=== PATIENT | male | born 1985 | race Caucasian/White ===

== ENCOUNTER 2017-10-23 16:20 | Emergency (ER) | payer SELFPAY ==
[~2017-10-23] VITALS: Ht 182.9 cm; Wt 136.1 kg
[~2017-10-23 16:20] MED LIST: AMOX-362 PO; AMOX500T10 PO; AZIT-1 PO; DIPH-741 PO; HYDR-319 PO; HYDR-385 PO; HYDR-4309 PO; IBUP800T37 PO; LOR5/325 PO; MOME17SP2 NS; OXYC-869 PO; PANT40TA65 PO; PENI-24 PO
[2017-10-23] MEDS ORDERED: PANT40TA65 PO (16:25)
--- NOTE | 2017-10-23 16:32 | ER Report ---
History and Physical Time Seen By MD: 16:32 Hx. of Stated Complaint: pt reports R ankle pain after tripping down the stairs HPI/ROS CHIEF COMPLAINT: Right ankle pain HISTORY OF PRESENT ILLNESS: 31-year-old male patient presents to emergency room with complaint of right ankle pain. Patient states that couple of hours ago he was going down the stairs when he fell. He states when he did that he twisted his ankle. States he is having pain on the medial aspect. He denies having any numbness or tingling. He states that the pain has been mild and he would not be here except for that his coarse 10. He denies any head injury, neck injury , dizziness, nausea, vomiting. REVIEW OF SYSTEMS: Respiratory: No cough, no dyspnea. Cardiovascular: No chest pain, no palpitations. Gastrointestinal: No vomiting, no abdominal pain. Musculoskeletal: As noted above Allergies: Coded Allergies: Egg Derived (Verified Allergy, Unknown, 10/23/17) Home Meds Reported Medications Pantoprazole Sodium (PANTOPRAZOLE SODIUM) 40 Mg Tablet.dr, 40 MG PO QDAY, TAB.SR 10/23/17 Past Medical/Surgical History Patient has a past medical history of reflux, alcohol use. Patient denies any surgical history. Hx Smoking: Yes Smoking Status: Former Smoker Hx Substance Use Disorder: No Hx Alcohol Use: Yes (occ) Constitutional Vital Sign - Last 24 Hours 10/23/17 10/23/17 16:25 17:30 Temp 97.9 Pulse 81 78 Resp 16 16 B/P (MAP) 144/82 138/75 (96) Pulse Ox 90 90 O2 Delivery Room Air Room Air Physical Exam General Appearance: The patient is alert, has no immediate need for airway protection and no current signs of toxicity. ENT: Tympanic membranes are pearly-bonilla, auditory canals are patent, mucous membranes are moist. Respiratory: Chest is non tender, lungs are clear to auscultation. Cardiac: regular rate and rhythm Gastrointestinal: Abdomen is soft and non tender, no masses, bowel sounds normal. Musculoskeletal: Neck: Neck is supple and non tender. Extremities have full range of motion and are non tender. Patient has some tenderness to the medial aspect of the right ankle, there is no obvious swelling , no bruising. Patient is able to wiggle toes without any difficulties. Skin: No rashes or lesions. DIFFERENTIAL DIAGNOSIS: After history and physical exam differential diagnosis was considered for ankle sprain, ankle strain, fracture. Medical Decision Making EKG/Imaging Imaging 3 views right ankle INDICATION: Fall. Ankle pain. COMPARISON: None Available FINDINGS: 3 views of the right ankle are obtained. No acute fracture or dislocation is seen. There is an intact ankle mortise. Rounded corticated ossification seen distal to the medial malleolus felt to be sequela of an old injury. There is soft tissue edema about the ankle which extends to the lower leg. There is a tiny heel spur. IMPRESSION: 1. No acute fracture or dislocation of the right ankle. 2. Soft tissue swelling about the ankle extending to the lower leg. Report Dictated By: Alfredo Neri at 10/23/2017 5:04 PM Report E-Signed By: Alfredo Neri at 10/23/2017 5:11 PM ED Course/Re-evaluation ED Course Patient was admitted to an exam room, history and physical were obtained. Differential diagnoses were considered. On examination patient has some tenderness to the medial aspect of the left ankle. X-rays were done. The results were negative, patient did have some soft tissue swelling but otherwise no fractures or dislocations. I discussed the findings with the patient. Due to the soft tissue swelling I did place the patient in an [place] wrap. He is to leave that on for the next few days. I encouraged him to continue with his normal activity. I prefer that he does not do any running or competitive sports. Patient verbalized understanding and agreement with plan. Patient does take Tylenol ibuprofen as needed for pain. Decision to Disposition Date: Oct 23, 2017 Decision to Disposition Time: 17:32 Depart Departure Latest Vital Signs Vital Signs Date Time Temp Pulse Resp B/P (MAP) Pulse Ox O2 Delivery O2 Flow Rate FiO2 10/23/17 17:30 78 16 138/75 (96) 90 Room Air 10/23/17 16:25 97.9 Impression: Primary Impression: Ankle sprain Condition: Improved Disposition: HOME OR SELF-CARE Patient Instructions: Ankle Sprain (ED) Additional Instructions: Limit activity by pain. Ice the ankle 2-3 times a day for 10-15 minutes. Get plenty of rest. Take Tylenol or Ibuprofen as needed for pain. Continue with current activity. Return to the ER if condition worsens. Problem Qualifiers Primary Impression: Ankle sprain Encounter type: initial encounter Involved ligament of ankle: unspecified ligament Laterality: right Qualified Codes: S93.401A - Sprain of unspecified ligament of right ankle, initial encounter LASHON SUNG Oct 23, 2017 16:32
[2017-10-23] MEDS ORDERED: KETOROLAC TROM 10MG TAB PO ONE (16:45)
--- NOTE | 2017-10-23 17:16 | RADIOLOGY IMAGING REPORT ---
FACILITY: [facility] PATIENT NAME: Checo Rosas : 1985 MR: [id number] V: [id number] EXAM DATE: ORDERING PHYSICIAN: LASHON SUNG TECHNOLOGIST: Location: [facility] [place] Patient: Checo Rosas : 1985 Visit/Account:[id number] Date of Sevice: 10/23/2017 3 views right ankle INDICATION: Fall. Ankle pain. COMPARISON: None Available FINDINGS: 3 views of the right ankle are obtained. No acute fracture or dislocation is seen. There is an intact ankle mortise. Rounded corticated ossification seen distal to the medial malleolus felt to be sequel a of an old injury. There is soft tissue edema about the ankle which extends to the lower leg. There is a tiny heel spur. IMPRESSION: 1. No acute fracture or dislocation of the right ankle. 2. Soft tissue swelling about the ankle extending to the lower leg. Report Dictated By: Alfredo Neri at 10/23/2017 5:04 PM Report E-Signed By: Alfredo Neri at 10/23/2017 5:11 PM WSN:[id number]
[2017-10-23 17:30] VITALS: BP 138/75
== END 2017-10-23 17:34 | disposition home or self-care (01) ==
LOC: ER 16:26
DX: S93.401A Sprain of unspecified ligament of right ankle, initial encounter (principal)
CPT/HCPCS: 99283

== ENCOUNTER 2017-11-17 00:07 | Emergency (ER) | payer SELFPAY ==
[~2017-11-17] VITALS: Ht 182.9 cm; Wt 136.1 kg
--- NOTE | 2017-11-17 00:08 | ER Report ---
History and Physical Time Seen By MD: 00:08 HPI/ROS CHIEF COMPLAINT: Right elbow injury HISTORY OF PRESENT ILLNESS: 31-year-old male reports he slipped on the ice and fell directly on his right elbow. There is an abrasion and bleeding. He notes decreased range of motion in his elbow and pain. He describes 7/10 pain. He notes numbness in his fingers and hand. He states she's having trouble moving his fingers and hand because they feel numb. Patient denies any other injuries. He thinks his last tetanus shots up-to-date within last 10 years. Allergies: Coded Allergies: Egg Derived (Verified Allergy, Unknown, 11/17/17) Home Meds Reported Medications Pantoprazole Sodium (PANTOPRAZOLE SODIUM) 40 Mg Tablet.dr, 40 MG PO QDAY, TAB.SR 10/23/17 Reviewed Nurses Notes: Yes Old Medical Records Reviewed: Yes Hx Smoking: Yes Smoking Status: Former Smoker Hx Substance Use Disorder: No Hx Alcohol Use: Yes (occ) Constitutional Vital Sign - Last 24 Hours 11/17/17 00:10 Temp 97.8 Pulse 70 Resp 20 B/P (MAP) 135/90 Pulse Ox 91 O2 Delivery Room Air Physical Exam General appearance: Alert no distress. Respiratory: Chest is non tender, lungs are clear to auscultation. Cardiac: Regular rate and rhythm Extremities: Examination of the right upper extremity reveals no tenderness in the shoulder. There is decreased range of motion at the elbow. There is an abrasion over the olecranon process. The forearm is nontender. The wrist is nontender. Patient given strict a week wrap 2nd to pain. All digits appear neurovascularly intact. DIFFERENTIAL DIAGNOSIS: After history and physical exam differential diagnosis was considered for sprain, strain, fracture, dislocation, contusion, nerve contusion Medical Decision Making EKG/Imaging Imaging X-ray: Right elbow, 3 views was obtained. I viewed the images myself on the PACS system. My interpretation of the images is: No fracture no dislocation or malalignment. The radiologist interpretation had no clinically significant variation from this interpretation. ED Course/Re-evaluation ED Course Patient was admitted to an examination room. H&P was done. The dental diagnoses was considered. On clinical examination, patient has an abrasion and soft tissue swelling to his elbow. There is decreased range of motion secondary to injury. Distal neurovascular functions intact. Diagnostic x-rays are negative. Patient's wound is cleaned up. He's placed in a sling to rest his arm. He is advised ibuprofen 600 mg 3 times daily. Patient advised to follow-up with primary care if unimproved in 3-5 days. Decision to Disposition Date: Nov 17, 2017 Decision to Disposition Time: 00:37 Depart Departure Latest Vital Signs Vital Signs Date Time Temp Pulse Resp B/P (MAP) Pulse Ox O2 Delivery O2 Flow Rate FiO2 11/17/17 00:10 97.8 70 20 135/90 91 Room Air Impression: Primary Impression: Contusion of right elbow Additional Impression: Abrasion of right elbow Condition: Improved Disposition: HOME OR SELF-CARE Referrals: TAWANNA POSADAS MD Patient Instructions: Acute Wound Care (ED), Contusion in Adults (ED) Additional Instructions: Take ibuprofen 200 mg 3 tablets 3 times a day with food Apply ice bags to your elbow Follow-up with your primary care if unimproved in 3-5 days. Problem Qualifiers Primary Impression: Contusion of right elbow Encounter type: initial encounter Qualified Codes: S50.01XA - Contusion of right elbow, initial encounter Additional Impression: Abrasion of right elbow Encounter type: initial encounter Qualified Codes: S50.311A - Abrasion of right elbow, initial encounter ANT GENAO DO Nov 17, 2017 00:08
[2017-11-17 00:10] VITALS: BP 135/90
[2017-11-17] MEDS ORDERED: IBUPROFEN 600 MG TAB PO ONE (00:40)
--- NOTE | 2017-11-17 00:57 | RADIOLOGY IMAGING REPORT ---
FACILITY: [facility] - [place] PATIENT NAME: Checo Rosas : 1985 MR: [id number] V: [id number] EXAM DATE: ORDERING PHYSICIAN: ANT GENAO TECHNOLOGIST: Location: [facility] - [place] Patient: Checo Rosas : 1985 Visit/Account:[id number] Date of Sevice: 11/17/2017 INDICATION: Fall, right elbow injury. EXAM DATE: 11/17/2017 12:17 AM COMPARISON: None. FINDINGS: 3 views right elbow. Mineralization is normal. No acute alignment abnormality or fracture. Soft tissu es are unremarkable. IMPRESSION: No acute osseous abnormality of the right right elbow. Report Dictated By: Jose A Cuevas MD at 11/17/2017 12:52 AM Report E-Signed By: Jose A Cuevas MD at 11/17/2017 12:53 AM WSN:[id number]
== END 2017-11-17 01:04 | disposition home or self-care (01) ==
LOC: ER 00:33
DX: S50.01XA Contusion of right elbow, initial encounter (principal); S50.311A Abrasion of right elbow, initial encounter; W00.0XXA Fall on same level due to ice and snow, initial encounter
CPT/HCPCS: 73080; 99282; A4565

== ENCOUNTER 2018-05-27 20:44 | Emergency (ER) | payer SELFPAY ==
[2018-05-27 20:47] VITALS: BP 163/108
[2018-05-27] MEDS ORDERED: TRAM-420 PO (21:02)
[2018-05-27] MEDS ORDERED: METH4TAB66 PO (21:02)
[2018-05-27] MEDS ORDERED: CYCL10TA29 PO (21:02)
--- NOTE | 2018-05-27 21:03 | ER Report ---
History and Physical Time Seen By MD: 20:54 Hx. of Stated Complaint: PT INJURED BACK 2 MONTHS AGO, NOW HAVING NUMBNESS IN BILAT LOWER EXTREMITIES HPI/ROS CHIEF COMPLAINT: Back pain HISTORY OF PRESENT ILLNESS: 32-year-old male presents ambulatory to the ER with 2 months of back pain in his lower back radiating to his left lower extremity. Patient was carrying a couch when he had a twisting motion. He's had persistent pain down his left lower extremity. He describes it 03/29, aggravated by bending and movement. REVIEW OF SYSTEMS: Respiratory: No cough, no dyspnea. Cardiovascular: No chest pain, no palpitations. Gastrointestinal: No vomiting, no abdominal pain. Musculoskeletal: As above Allergies: Coded Allergies: Egg Derived (Verified Allergy, Unknown, 05/27/18) Home Meds Active Scripts Cyclobenzaprine Hcl (CYCLOBENZAPRINE HCL) 10 Mg Tablet, 10 MG PO TID PRN for muscle spasm relief, #12 TAB Prov:ANT GENAO DO 05/27/18 Tramadol Hcl (TRAMADOL HCL) 50 Mg Tablet, 1 TAB PO Q4-6H PRN for PAIN, #15 MG TAKE ONE TO TWO TABLETS BY MOUTH EVERY FOUR TO SIX HOURS NEEDED Prov:ANT GENAO DO 05/27/18 Methylprednisolone (METHYLPREDNISOLONE) 4 Mg Tab.ds.pk, 4 MG PO DIRECTED for back inflammation, #1 TAB Prov:ANT GENAO DO 05/27/18 Reported Medications Pantoprazole Sodium (PANTOPRAZOLE SODIUM) 40 Mg Tablet.dr, 40 MG PO QDAY, TAB.SR 10/23/17 Hx Smoking: Yes Smoking Status: Former Smoker Hx Substance Use Disorder: No Hx Alcohol Use: Yes (occ) Constitutional Vital Sign - Last 24 Hours 05/27/18 20:47 Temp 98.5 Pulse 78 Resp 16 B/P (MAP) 163/108 Pulse Ox 93 O2 Delivery Room Air Physical Exam General Appearance: The patient is alert, has no immediate need for airway protection and no current signs of toxicity. Eyes: Pupils equal and round no injection. Respiratory: Chest is non tender, lungs are clear to auscultation. Cardiac: regular rate and rhythm Gastrointestinal: Abdomen is soft and non tender, no masses, bowel sounds normal. Musculoskeletal: Neck: Neck is supple and non tender. Back: No CVA tenderness, moderate tenderness in the midline, Extremities have full range of motion and are non tender. Positive straight leg raise on the right at 45 Skin: No rashes or lesions. DIFFERENTIAL DIAGNOSIS: After history and physical exam differential diagnosis was considered for back pain including but not limited to muscular pain, herniated disc, spine fracture, intra-abdominal causes and urinary tract infection. Medical Decision Making ED Course/Re-evaluation ED Course Patient was minute to an examination room. H&P was done. The differential diagnoses was considered. On conical examination. Patient has findings suspicious for a herniated disc of his left leg. Patient's had symptoms for 2 months. Patient will likely need an MRI for diagnosis. Patient has no health insurance and can't afford it. We'll treat him symptomatically with prednisone, tramadol for pain and Flexeril for muscle relaxation. Patient advised to follow-up with Dr. Gallardo for consideration of spinal surgery. Decision to Disposition Date: May 27, 2018 Decision to Disposition Time: 21:00 Depart Departure Latest Vital Signs Vital Signs Date Time Temp Pulse Resp B/P (MAP) Pulse Ox O2 Delivery O2 Flow Rate FiO2 05/27/18 20:47 98.5 78 16 163/108 93 Room Air Impression: Primary Impression: Back pain Additional Impression: Lumbar herniated disc Condition: Improved Disposition: HOME OR SELF-CARE Referrals: SHUBHAM GALLARDO MD New Scripts Cyclobenzaprine Hcl (CYCLOBENZAPRINE HCL) 10 Mg Tablet 10 MG PO TID PRN for muscle spasm relief, #12 TAB Prov: ANT GENAO DO 05/27/18 Tramadol Hcl (TRAMADOL HCL) 50 Mg Tablet 1 TAB PO Q4-6H PRN for PAIN, #15 MG TAKE ONE TO TWO TABLETS BY MOUTH EVERY FOUR TO SIX HOURS NEEDED Prov: ANT GENAO DO 05/27/18 Methylprednisolone (METHYLPREDNISOLONE) 4 Mg Tab.ds.pk 4 MG PO DIRECTED for back inflammation, #1 TAB Prov: ANT GENAO DO 05/27/18 Patient Instructions: Lumbar Disc Herniation (ED) Additional Instructions: Take ibuprofen 200 mg 3 tablets 3 times a day with food Apply heating pad to your back area Follow-up with spinal surgeon, Dr. Shubham Gallardo at [facility] [phone], address [address] Problem Qualifiers Primary Impression: Back pain Back pain location: low back pain Chronicity: acute Back pain laterality: left Sciatica presence: with sciatica Sciatica laterality: sciatica of left side Qualified Codes: M54.42 - Lumbago with sciatica, left side ANT GENAO DO May 27, 2018 21:03
[2018-05-27] MEDS ORDERED: predniSONE 20 MG TAB PO ONE (21:05)
[2018-05-27] MEDS ORDERED: METHOCARBAMOL 500 MG TAB PO ONE (21:05)
[2018-05-27] MEDS ORDERED: traMADol 50 MG TAB TH 2 TAB/BOTTLE PO ONE (21:05)
== END 2018-05-27 21:23 | disposition home or self-care (01) ==
LOC: ER 20:48
DX: M54.42 Lumbago with sciatica, left side (principal); M51.26 Other intervertebral disc displacement, lumbar region
CPT/HCPCS: 99283; C9399; J7512

== ENCOUNTER 2018-07-25 12:26 | Emergency (ER) | payer BC ==
[~2018-07-25 12:26] MED LIST changes: +CYCL10TA29 PO; -HYDR-4309 PO; +HYDR-653 PO; +METH4TAB66 PO; +TRAM-420 PO
--- NOTE | 2018-07-25 12:37 | ER Report ---
History and Physical Time Seen By MD: 12:37 HPI/ROS CHIEF COMPLAINT: Back pain HISTORY OF PRESENT ILLNESS: 32-year-old male patient presents to emergency room with complaint of back pain. Patient states that he has been having intermittent back pain for the past month. Patient states pain today was fairly significant. He states that he was unable to get out of bed by himself. States his had to help rollover impression mild. Patient states that he's not had any loss of bowel or bladder control. He denies having any saddle paresthesia. Patient states that he was seen approximately one month ago, was placed on pain medication as well as muscle relaxer. States muscle relaxer seemed to help, however he felt like the pain medication made him mean. Patient denies any fevers, chills, nausea, vomiting or diarrhea. REVIEW OF SYSTEMS: Respiratory: No cough, no dyspnea. Cardiovascular: No chest pain, no palpitations. Gastrointestinal: No vomiting, no abdominal pain. Musculoskeletal: As noted above Allergies: Coded Allergies: Egg Derived (Verified Allergy, Unknown, 07/25/18) Home Meds Active Scripts Prednisone (PREDNISONE) 20 Mg Tablet, 40 MG PO DAILY, #10 TAB Prov:LASHON SUNG [facility] 07/25/18 Cyclobenzaprine Hcl (CYCLOBENZAPRINE HCL) 10 Mg Tablet, 10 MG PO TID, #15 TAB Prov:LASHON SUNG [facility] 07/25/18 Hydrocodone Bit/Acetaminophen (HYDROCODON-ACETAMINOPHEN 5-325) 1 Each Tablet, 1 EACH PO Q4-6H PRN for PAIN, #8 TAB Prov:LASHON SUNG [facility] 07/25/18 Reported Medications Pantoprazole Sodium (PANTOPRAZOLE SODIUM) 40 Mg Tablet.dr, 40 MG PO QDAY, TAB.SR 10/23/17 Discontinued Scripts Cyclobenzaprine Hcl (CYCLOBENZAPRINE HCL) 10 Mg Tablet, 10 MG PO TID PRN for muscle spasm relief, #12 TAB Prov:ANT GENAO DO 05/27/18 Tramadol Hcl (TRAMADOL HCL) 50 Mg Tablet, 1 TAB PO Q4-6H PRN for PAIN, #15 MG TAKE ONE TO TWO TABLETS BY MOUTH EVERY FOUR TO SIX HOURS NEEDED Prov:ANT GENAO DO 05/27/18 Methylprednisolone (METHYLPREDNISOLONE) 4 Mg Tab.ds.pk, 4 MG PO DIRECTED for back inflammation, #1 TAB Prov:ANT GENAO DO 05/27/18 Past Medical/Surgical History Patient has a past medical history of reflux, alcohol use. Patient has no pertinent surgical history. Reviewed Nurses Notes: Yes Hx Smoking: Yes Smoking Status: Former Smoker Hx Substance Use Disorder: No Hx Alcohol Use: Yes (occ) Constitutional Vital Sign - Last 24 Hours 07/25/18 12:37 Temp 98.3 Pulse 70 Resp 16 B/P (MAP) 136/104 Pulse Ox 93 O2 Delivery Room Air Physical Exam General Appearance: The patient is alert, has no immediate need for airway protection and no current signs of toxicity. ENT: Tympanic membranes are pearly-bonilla, auditory canals are patent, mucous membranes are moist. Respiratory: Chest is non tender, lungs are clear to auscultation. Cardiac: regular rate and rhythm Gastrointestinal: Abdomen is soft and non tender, no masses, bowel sounds normal. Musculoskeletal: Neck: Neck is supple and non tender. Back: Patient has tenderness in the low back, especially on the right side. No bruising noted. Extremities have full range of motion and are non tender. Skin: No rashes or lesions. DIFFERENTIAL DIAGNOSIS: After history and physical exam differential diagnosis was considered for back pain including but not limited to muscular pain, herniated disc, spine fracture, intra-abdominal causes and urinary tract infection. Medical Decision Making EKG/Imaging Imaging Examination: LUMBAR SPINE 4 VIEWS Comparison: CT abdomen and pelvis 03/15/2017 History: back pain Findings: 5 lumbar type vertebral bodies. Vertebral body alignment is within normal limits; thoracolumbar, facet, and lumbosacral alignment is maintained. Mild anterior compression at L1 is unchanged since 03/15/2017. No new vertebral body height loss. Mild endplate degenerative change of thoracolumbar junction. Disc spaces are otherwise fairly well-preserved. No pars defect is identified. Sacroiliac joint alignment is within normal limits. Visualized soft tissues are unremarkable. IMPRESSION: 1. No lumbar acute vertebral body height loss or malalignment. Chronic anterior compression at L1. 2. Mild degenerative change at the thoracolumbar junction. Report Dictated By: Anthony Vega MD at 07/25/2018 2:22 PM Report E-Signed By: Anthony Vega MD at 07/25/2018 2:25 PM ED Course/Re-evaluation ED Course Patient was admitted exam room, history and physical were obtained. Differential diagnoses were considered. On examination lungs are clear, heart is regular, abdomen is soft and nontender. Patient did have some tenderness in the L4-L5 region. X-ray of the lumbar spine was done. That was negative for any acute findings. There is some degeneration of the L5 region as well as what appear to be chronic compression at L1. I discussed findings with patient. We will go ahead and give him a limited supply of pain medication, a muscle relaxer as well as a steroid. I would like him take steroid as directed. The others I would like him to take as needed. Patient is to follow-up with his appointment that he has this week. I expect they will make a referral to Dr. Gallardo at [facility]. He is to limit his activity by pain. I like him to limit his heavy lifting. Discusses the patient who verbalized understanding and agreement. Decision to Disposition Date: Jul 25, 2018 Decision to Disposition Time: 14:38 Depart Departure Latest Vital Signs Vital Signs Date Time Temp Pulse Resp B/P (MAP) Pulse Ox O2 Delivery O2 Flow Rate FiO2 07/25/18 12:37 98.3 70 16 136/104 93 Room Air Impression: Primary Impression: Back pain Condition: Improved Disposition: HOME OR SELF-CARE New Scripts Prednisone (PREDNISONE) 20 Mg Tablet 40 MG PO DAILY, #10 TAB Prov: LASHON SUNG 07/25/18 Cyclobenzaprine Hcl (CYCLOBENZAPRINE HCL) 10 Mg Tablet 10 MG PO TID, #15 TAB Prov: LASHON SUNG 07/25/18 Hydrocodone Bit/Acetaminophen (HYDROCODON-ACETAMINOPHEN 5-325) 1 Each Tablet 1 EACH PO Q4-6H PRN for PAIN, #8 TAB Prov: LASHON SUNG 07/25/18 Patient Instructions: Acute Low Back Pain (ED) Additional Instructions: Limit activity by pain. Take the medication as prescribed. Follow up in Wednesday with your current appointment. Return to the ER if condition worsens. Limit heavy lifting during this time. Problem Qualifiers Primary Impression: Back pain Back pain location: low back pain Chronicity: acute Back pain laterality: right Sciatica presence: with sciatica Sciatica laterality: sciatica of right side Qualified Codes: M54.41 - Lumbago with sciatica, right side LASHON SUNG Jul 25, 2018 12:37
--- NOTE | 2018-07-25 14:28 | RADIOLOGY IMAGING REPORT ---
FACILITY: [facility] PATIENT NAME: Checo Rosas : 1985 MR: [id number] V: [id number] EXAM DATE: ORDERING PHYSICIAN: LASHON SUNG TECHNOLOGIST: Location: [facility] Patient: Checo Rosas : 1985 Visit/Account:[id number] Date of Sevice: 07/25/2018 Examination: LUMBAR SPINE 4 VIEWS Comparison: CT abdomen and pelvis 03/15/2017 History: back pain Findings: 5 lumbar type vertebral bodies. Vertebral body alignment is within normal limits; thoracolu mbar, facet, and lumbosacral alignment is maintained. Mild anterior compression at L1 is unchanged si nce 03/15/2017. No new vertebral body height loss. Mild endplate degenerative change of thoracolumbar junction. Disc spaces are otherwise fairly well-preserved. No pars defect is identified. Sacroiliac j oint alignment is within normal limits. Visualized soft tissues are unremarkable. IMPRESSION: 1. No lumbar acute vertebral body height loss or malalignment. Chronic anterior compression at L1. 2. Mild degenerative change at the thoracolumbar junction. Report Dictated By: Anthony Vega MD at 07/25/2018 2:22 PM Report E-Signed By: Anthony Vega MD at 07/25/2018 2:25 PM WSN:[id number]
[2018-07-25] MEDS ORDERED: CYCL10TA29 PO (14:35)
[2018-07-25] MEDS ORDERED: HYDR-385 PO (14:35)
[2018-07-25] MEDS ORDERED: PRED20TA6 PO (14:35)
[2018-07-25 14:44] VITALS: BP 141/91
== END 2018-07-25 14:47 | disposition home or self-care (01) ==
LOC: ER 13:09
DX: M54.41 Lumbago with sciatica, right side (principal)
CPT/HCPCS: 72120; 99283

== ENCOUNTER 2018-08-03 13:03 | Emergency (ER) | payer BC ==
[~2018-08-03 13:03] MED LIST changes: +PRED20TA6 PO
[2018-08-03 13:09] VITALS: BP 150/95
--- NOTE | 2018-08-03 13:19 | ER Report ---
History and Physical Time Seen By MD: 13:19 Hx. of Stated Complaint: patient reports a fall on ice 2 days ago. his back is hurting in the same spot as on the previous er visit HPI/ROS CHIEF COMPLAINT: Back pain HISTORY OF PRESENT ILLNESS: 32-year-old male patient presents to emergency room with complaint of back pain. Patient states that he has had back pain now for the past 2 months. He states that he was seen in the emergency room approximately 9 days ago. At that time he was directed to follow-up with primary care provider. He states he did and was referred to physical therapy. He states he has a appointment on Wednesday for that. Patient states that 2 nights ago he slipped and fell on the ice. He states that aggravated the back pain. He states that the pain is persistent. He states he is not having any problems. He states he is not having any numbness tingling was riding down the legs. He denies having any saddle paresthesia. He denies having any loss of bowel or bladder control. Patient requests that he get a note for light duty at work. He states that his instructed him to come to the emergency room as he was directed by [facility] when he called them Wednesday after his fall. Allergies: Coded Allergies: Egg Derived (Verified Allergy, Unknown, 07/25/18) Home Meds Active Scripts Prednisone (PREDNISONE) 20 Mg Tablet, 40 MG PO DAILY, #10 TAB Prov:LASHON SUNG [facility] 07/25/18 Cyclobenzaprine Hcl (CYCLOBENZAPRINE HCL) 10 Mg Tablet, 10 MG PO TID, #15 TAB Prov:LASHON SUNG [facility] 07/25/18 Hydrocodone Bit/Acetaminophen (HYDROCODON-ACETAMINOPHEN 5-325) 1 Each Tablet, 1 EACH PO Q4-6H PRN for PAIN, #8 TAB Prov:LASHON SUNG [facility] 07/25/18 Reported Medications Pantoprazole Sodium (PANTOPRAZOLE SODIUM) 40 Mg Tablet.dr, 40 MG PO QDAY, TAB.SR 10/23/17 Past Medical/Surgical History Patient has a past medical history of reflux, alcohol use. Patient denies any surgical history. Reviewed Nurses Notes: Yes Hx Smoking: Yes Smoking Status: Former Smoker Hx Substance Use Disorder: No Hx Alcohol Use: Yes (occ) Constitutional Vital Sign - Last 24 Hours 08/03/18 13:09 Temp 98.5 Pulse 72 Resp 24 B/P (MAP) 150/95 Pulse Ox 91 O2 Delivery Room Air Physical Exam General Appearance: The patient is alert, has no immediate need for airway protection and no current signs of toxicity. Respiratory: Chest is non tender, lungs are clear to auscultation. Cardiac: regular rate and rhythm Gastrointestinal: Abdomen is soft and non tender, no masses, bowel sounds normal. Musculoskeletal: Neck: Neck is supple and non tender. Back: Patient does have some tenderness in the L3-L4 region with tenderness to the paraspinal muscles. Extremities have full range of motion and are non tender. Skin: No rashes or lesions. DIFFERENTIAL DIAGNOSIS: After history and physical exam differential diagnosis was considered for acute on chronic back pain. Medical Decision Making ED Course/Re-evaluation ED Course Patient was admitted to exam room, history and physical were obtained. Differential diagnoses were considered. On examination lungs are clear, heart is regular, abdomen is soft and nontender. Patient did have some tenderness in the L3-L4 region of the back. As well as some paraspinal muscle tenderness on the right side. With the injury being a flareup of his chronic pain we discussed an x-ray of decided against it. Patient requested note for light duty at work. Patient was given a note to limit his weight lifting to less than 30 pounds, he is also to limit his time bending or squatting as much as possible. He is to follow-up with physical therapy as directed. I would like him to get cleared for full duty through their own joint and was given information for Dr. Phipps. Patient verbalized understanding and agreement with plan. Decision to Disposition Date: Aug 03, 2018 Decision to Disposition Time: 13:25 Depart Departure Latest Vital Signs Vital Signs Date Time Temp Pulse Resp B/P (MAP) Pulse Ox O2 Delivery O2 Flow Rate FiO2 08/03/18 13:09 98.5 72 24 150/95 91 Room Air Impression: Primary Impression: Back pain Condition: Improved Disposition: HOME OR SELF-CARE Referrals: VOLODYMYR PHIPPS MD Patient Instructions: Back Pain (ED) Additional Instructions: Limit activity by pain. Alternate ice and heat with your back. Get plenty of rest. Take the medication as prescribed. Follow up with Physical Therapy as directed. Return to the ER if condition worsens. Limit activity at work to prevent heavy lifting <30 pounds. Limit bending and squatting to a minimum. Patient will need to be cleared by orthopedics. Problem Qualifiers Primary Impression: Back pain Back pain location: low back pain Chronicity: chronic Back pain laterality: right Sciatica presence: without sciatica Qualified Codes: M54.5 - Low back pain; G89.29 - Other chronic pain LASHON SUNG Aug 03, 2018 13:19
== END 2018-08-03 13:37 | disposition home or self-care (01) ==
LOC: ER 13:24
DX: M54.5 Low back pain (principal); G89.29 Other chronic pain
CPT/HCPCS: 99281

== ENCOUNTER 2018-08-05 21:15 | Emergency (ER) | payer BC ==
[2018-08-05 21:20] VITALS: BP 167/91
--- NOTE | 2018-08-05 21:20 | ER Report ---
History and Physical Time Seen By MD: 21:20 HPI/ROS CHIEF COMPLAINT: Toothache HISTORY OF PRESENT ILLNESS: 32-year-old male presents ambulatory to the ER complaining of dental pain. Patient notes no difficulty swallowing or breathing. He's had no fever or chills. He notes a dull pain that started approximately 3 days ago. REVIEW OF SYSTEMS: Respiratory: No cough, no dyspnea. Cardiovascular: No chest pain, no palpitations. Gastrointestinal: No vomiting, no abdominal pain. Musculoskeletal: No back pain. Allergies: Coded Allergies: Egg Derived (Verified Allergy, Unknown, 07/25/18) Home Meds Active Scripts Amoxicillin/Pot Clav 875-125 Mg Tab (AUGMENTIN 875-125 TABLET) 1 Each Tablet, 1 TAB PO Q12H for 7 Days, #14 TAB Prov:ROXY GUZMAN MD 08/06/18 Amoxicillin 500 Mg Tab (AMOXICILLIN 500 MG TAB) 500 Mg Tablet, 1 TAB PO TID for infection, #30 TAB Prov:ANT GENAO DO 08/05/18 Hydrocodone Bit/Acetaminophen (HYDROCODON-ACETAMINOPHEN 5-325) 1 Each Tablet, 1 EACH PO Q4-6H PRN for PAIN, #8 TAB Prov:LASHON SUNG [facility] 07/25/18 Reported Medications Pantoprazole Sodium (PANTOPRAZOLE SODIUM) 40 Mg Tablet.dr, 40 MG PO QDAY, TAB.SR 10/23/17 Discontinued Scripts Prednisone (PREDNISONE) 20 Mg Tablet, 40 MG PO DAILY, #10 TAB Prov:LASHON SUNG [facility] 07/25/18 Cyclobenzaprine Hcl (CYCLOBENZAPRINE HCL) 10 Mg Tablet, 10 MG PO TID, #15 TAB Prov:LASHON SUNG [facility] 07/25/18 Past Medical/Surgical History Patient has a past medical history of reflux, alcohol use. Patient denies any surgical history. Reviewed Nurses Notes: Yes Old Medical Records Reviewed: Yes Hx Smoking: Yes Smoking Status: Former Smoker Hx Substance Use Disorder: No Hx Alcohol Use: Yes (occ) Constitutional Vital Sign - Last 24 Hours 08/05/18 21:20 Temp 97.7 Pulse 83 Resp 17 B/P (MAP) 167/91 Pulse Ox 94 O2 Delivery Room Air Physical Exam Vital signs stable, afebrile, pulse ox normal, General Appearance: The patient is alert, has no immediate need for airway protection and no current signs of toxicity. Mild distress HEENT: Pupils equal and round no injection. TMs normal, TMJs nontender, oropharynx shows tooth at #7 position with a large carry. There is some surrounding gum inflammation, erythema and tenderness with palpation of a tongue blade. There is no soft tissue swelling of the maxillary area. There is no lymphadenopathy or induration of the lower neck tissues. Palpation of the anterior cervical chain region Respiratory: Chest is non tender, lungs are clear to auscultation. Cardiac: regular rate and rhythm, no murmur Musculoskeletal: Neck: Neck is supple and non tender. Extremities have full range of motion and are non tender. Skin: No rashes or lesions. DIFFERENTIAL DIAGNOSIS: After history and physical exam differential diagnosis was considered for dental pain, tooth abscess, sinusitis, dental fistula Medical Decision Making ED Course/Re-evaluation ED Course Patient was minute to an examination room. H&P was done. The differential diagnoses was considered. On clinical examination. Patient has a dental carry with surrounding gum inflammation suggesting a tooth abscess. We prescribed amoxicillin 500 mg 3 times a day. He is advised alternating ibuprofen and Tylenol for affective pain relief. He is advised by heating pad to his facial area. Patient's advised follow up with the dentist as soon as possible. Decision to Disposition Date: Aug 05, 2018 Decision to Disposition Time: 21:30 Depart Departure Latest Vital Signs Vital Signs Date Time Temp Pulse Resp B/P (MAP) Pulse Ox O2 Delivery O2 Flow Rate FiO2 08/05/18 21:20 97.7 83 17 167/91 94 Room Air Impression: Primary Impression: Dental abscess Condition: Improved Disposition: HOME OR SELF-CARE New Scripts Amoxicillin 500 Mg Tab (AMOXICILLIN 500 MG TAB) 500 Mg Tablet 1 TAB PO TID for infection, #30 TAB Prov: ANT GENAO DO 08/05/18 Patient Instructions: Dental Abscess (ED) Additional Instructions: Follow-up with your dentist as soon as possible ANT GENAO DO Aug 05, 2018 21:20
[2018-08-05] MEDS ORDERED: AMOXICILLIN 500 MG CAP PO ONE (21:30)
[2018-08-05] MEDS ORDERED: AMOX500T10 PO (21:32)
[2018-08-06] MEDS ORDERED: AMOX-559 PO (10:15)
== END 2018-08-05 21:45 | disposition home or self-care (01) ==
LOC: ER 21:24
DX: K04.7 Periapical abscess without sinus (principal)
CPT/HCPCS: 99283

== ENCOUNTER 2018-08-06 09:25 | Emergency (ER) | payer BC ==
[2018-08-06 09:32] VITALS: BP 159/107
[2018-08-06] MEDS ORDERED: AMOX/CLAV 875 MG TAB PO ONE (10:10)
[2018-08-06] MEDS ORDERED: LIDOCAINE 4% 15 GM TUBE TP ONE (10:10)
[2018-08-06] MEDS ORDERED: AMOX-559 PO (10:15)
--- NOTE | 2018-08-06 10:16 | ER Report ---
History and Physical Time Seen By MD: 10:00 Hx. of Stated Complaint: PATIENT REPORTS THAT HE HAS A DENTAL ABSCESS THAT HE WAS SEEN FOR OVERNIGHT IN THE ER. HE WAS GIVEN ANTIBIOTICS FOR THIS IN THE ER HPI/ROS CHIEF COMPLAINT: dental pain HISTORY OF PRESENT ILLNESS: pt c/o worsening pain r upper incisor since last night, when he was seen. Pain x 2 d, now 8/10. Assoc with local swelling, nausea, chills. Has taken tylenol this am. Has not picked up his amox rx. No fevers, cp, sob, ap, vomiting. Has had similar before. Has dental f/u. REVIEW OF SYSTEMS: Respiratory: No cough, no dyspnea. Cardiovascular: No chest pain, no palpitations. Gastrointestinal: No vomiting, no abdominal pain. Musculoskeletal: No back pain. Remainder of the 14 system rev: Yes Allergies: Coded Allergies: Egg Derived (Verified Allergy, Unknown, 07/25/18) Home Meds Active Scripts Amoxicillin 500 Mg Tab (AMOXICILLIN 500 MG TAB) 500 Mg Tablet, 1 TAB PO TID for infection, #30 TAB Prov:ANT GENAO DO 08/05/18 Hydrocodone Bit/Acetaminophen (HYDROCODON-ACETAMINOPHEN 5-325) 1 Each Tablet, 1 EACH PO Q4-6H PRN for PAIN, #8 TAB Prov:LASHON SUNG [facility] 07/25/18 Reported Medications Pantoprazole Sodium (PANTOPRAZOLE SODIUM) 40 Mg Tablet.dr, 40 MG PO QDAY, TAB.SR 10/23/17 Discontinued Scripts Prednisone (PREDNISONE) 20 Mg Tablet, 40 MG PO DAILY, #10 TAB Prov:LASHON SUNG [facility] 07/25/18 Cyclobenzaprine Hcl (CYCLOBENZAPRINE HCL) 10 Mg Tablet, 10 MG PO TID, #15 TAB Prov:LASHON SUNG [facility] 07/25/18 Hx Smoking: Yes Smoking Status: Former Smoker Hx Substance Use Disorder: No Hx Alcohol Use: Yes (occ) Constitutional Vital Sign - Last 24 Hours 08/06/18 09:32 Pulse 97 Resp 24 B/P (MAP) 159/107 Pulse Ox 95 O2 Delivery Room Air Physical Exam General Appearance: The patient is alert, has no immediate need for airway protection and no current signs of toxicity. Eyes: Pupils equal and round no injection. Respiratory: Chest is non tender, lungs are clear to auscultation. Cardiac: regular rate and rhythm ENT - R #7 dental burt with surrounding erythema, mild edema, ttp. No fluctuance with thorough palpation around site. No other oral or soft tissue swelling. No facial cellulitis. Musculoskeletal: Neck: no cervical lad Skin: No rashes or lesions. DIFFERENTIAL DIAGNOSIS: After history and physical exam differential diagnosis was considered for dental yun, abscess, cellulitis Medical Decision Making ED Course/Re-evaluation ED Course Pt c/o increased pain/swelling and concern of amox coverage; he is aware that he has not had chance for amox to work. No clear abscess or cellulitis. Will add pain control and broaden abx, SRp's. Decision to Disposition Date: Aug 06, 2018 Decision to Disposition Time: 10:13 Depart Departure Latest Vital Signs Vital Signs Date Time Temp Pulse Resp B/P (MAP) Pulse Ox O2 Delivery O2 Flow Rate FiO2 08/06/18 09:32 97 24 159/107 95 Room Air Impression: Primary Impression: Dental caries Condition: Improved Disposition: HOME OR SELF-CARE New Scripts Amoxicillin/Pot Clav 875-125 Mg Tab (AUGMENTIN 875-125 TABLET) 1 Each Tablet 1 TAB PO Q12H for 7 Days, #14 TAB Prov: ROXY GUZMAN MD 08/06/18 Patient Instructions: Dental Caries (DC) Additional Instructions: As we discussed, you do not have a currently drainable infection from an emergency standpoint, but require close follow up with dentist. We discussed methods to control pain; tylenol no more than 975mg every 8 hours, topical lidocaine, and augmentin as prescribed. Return for worsening or any concerns. ROXY GUZMAN MD Aug 06, 2018 10:16
== END 2018-08-06 10:26 | disposition home or self-care (01) ==
LOC: ER 10:01
DX: K02.9 Dental caries, unspecified (principal)
CPT/HCPCS: 99283

== ENCOUNTER 2018-12-21 14:48 | Outpatient (RCR) | payer BC ==
[~2018-12-21 14:48] MED LIST changes: +AMOX-559 PO
--- NOTE | 2018-12-23 10:10 | RADIOLOGY IMAGING REPORT ---
FACILITY: [facility] [place] PATIENT NAME: Checo Rosas : 1985 MR: [id number] V: [id number] EXAM DATE: ORDERING PHYSICIAN: ROSALINA WANG TECHNOLOGIST: Location: [facility] [place] Patient: Checo Rosas : 1985 Visit/Account:[id number] Date of Sevice: 12/23/2018 KIDNEYS EXAMINATION: Renal ultrasound. History: Microhematuria COMPARISON STUDIES: CT abdomen pelvis March 14, 2017 FINDINGS: Kidneys: Right kidney- 10.5 x 6.7 x 6.1 cm Left kidney- 10.7 x 4.6 x 5.5 cm Uniform and symmetric blood flow in each kidney by Doppler ultrasound. Hydronephrosis: none Bladder: Prevoid volume 92 mL. Post void residual 6 mL. Bilateral ureteral jets are present. Abdominal aorta and IVC: The aorta appeared patent. The IVC was obscured by bowel gas IMPRESSION: Unremarkable renal ultrasound Report Dictated By: Kinjal Gordon MD at 12/23/2018 10:04 AM Report E-Signed By: Kinjal Gordon MD at 12/23/2018 10:05 AM WSN:[id number]
== END 2018-12-23 18:00 | disposition home or self-care (01) ==
LOC: US 14:48 → EDSTATUS 12-22 14:48 → US 12-23 18:00
PROVIDERS: ATTEND Urology
DX: R31.29 Other microscopic hematuria (principal)
CPT/HCPCS: 76705; 81001; 87088

== ENCOUNTER 2019-03-24 23:49 | Emergency (ER) | payer BC ==
[2019-03-24 23:53] VITALS: BP 149/88
--- NOTE | 2019-03-24 23:53 | ER Report ---
History and Physical Time Seen By MD: 23:50 HPI/ROS CHIEF COMPLAINT: Bilateral ear pain HISTORY OF PRESENT ILLNESS: 33-year-old male presents with bilateral ear pain for 1 week. He began the right is now in the left. Patient notes popping and plugging of his ears. He notes decreased hearing. He's had sinus congestion and green drainage. Patient thinks he might have ear infections. Patient denies bad teeth or dental problems. REVIEW OF SYSTEMS: Respiratory: No cough, no dyspnea. Cardiovascular: No chest pain, no palpitations. Gastrointestinal: No vomiting, no abdominal pain. Musculoskeletal: No back pain. Allergies: Coded Allergies: Egg Derived (Verified Allergy, Unknown, 03/24/19) Home Meds Active Scripts Hydrocodone Bit/Acetaminophen (HYDROCODON-ACETAMINOPHEN 5-325) 1 Each Tablet, 1 EACH PO Q4-6H PRN for PAIN, #10 TAKE ONE TABLET BY MOUTH EVERY 4-6 HOURS NEEDED FOR PAIN Prov:ANT GENAO DO 03/25/19 Cefuroxime Axetil (CEFUROXIME) 500 Mg Tablet, 500 MG PO BID for infection, #14 TAB Prov:ANT GENAO DO 03/25/19 Reported Medications Pantoprazole Sodium (PANTOPRAZOLE SODIUM) 40 Mg Tablet.dr, 40 MG PO QDAY, TAB.SR 10/23/17 Discontinued Scripts Amoxicillin/Pot Clav 875-125 Mg Tab (AUGMENTIN 875-125 TABLET) 1 Each Tablet, 1 TAB PO Q12H for 7 Days, #14 TAB Prov:ROXY GUZMAN MD 08/06/18 Amoxicillin 500 Mg Tab (AMOXICILLIN 500 MG TAB) 500 Mg Tablet, 1 TAB PO TID for infection, #30 TAB Prov:ANT GENAO DO 08/05/18 Hydrocodone Bit/Acetaminophen (HYDROCODON-ACETAMINOPHEN 5-325) 1 Each Tablet, 1 EACH PO Q4-6H PRN for PAIN, #8 TAB Prov:LASHON SUNG 07/25/18 Reviewed Nurses Notes: Yes Old Medical Records Reviewed: Yes Hx Smoking: Yes Smoking Status: Former Smoker Hx Substance Use Disorder: No Hx Alcohol Use: Yes (occ) Constitutional Vital Sign - Last 24 Hours 03/24/19 23:53 Temp 98.7 Pulse 79 Resp 18 B/P (MAP) 149/88 Pulse Ox 90 Physical Exam General Appearance: The patient is alert, has no immediate need for airway protection and no current signs of toxicity. Vital signs stable, afebrile, pulse ox normal HEENT: Pupils equal and round no injection. Bilateral TMs are erythematous and bulging. Left greater than right. Oropharynx with moderate erythema Respiratory: Chest is non tender, lungs are clear to auscultation. Cardiac: regular rate and rhythm Gastrointestinal: Abdomen is soft and non tender, no masses, bowel sounds normal. Musculoskeletal: Neck: Neck is supple and non tender. No lymphadenopathy Extremities have full range of motion and are non tender. Skin: No rashes or lesions. DIFFERENTIAL DIAGNOSIS: After history and physical exam differential diagnosis was considered for otitis media, otitis externa, dental pain, TMJ disorder, sinusitis Medical Decision Making ED Course/Re-evaluation ED Course Patient was admitted to an examination room. H&P was done. The differential diagnoses was considered. On clinical examination. Patient has bilateral otitis media and likely a sinus infection. He'll be treated with Ceftin antibiotic. He is advised Mucinex D. He is given hydrocodone for pain relief. He is advised to take ibuprofen as well. Patient advised to follow-up with primary care if unimproved in 3-5 days. Decision to Disposition Date: Mar 24, 2019 Decision to Disposition Time: 23:56 Depart Departure Latest Vital Signs Vital Signs Date Time Temp Pulse Resp B/P (MAP) Pulse Ox O2 Delivery O2 Flow Rate FiO2 03/24/19 23:53 98.7 79 18 149/88 90 Impression: Primary Impression: Bilateral otitis media Condition: Improved Disposition: HOME OR SELF-CARE Referrals: ERIC FERRERA MD, FARRUKH MD New Scripts Hydrocodone Bit/Acetaminophen (HYDROCODON-ACETAMINOPHEN 5-325) 1 Each Tablet 1 EACH PO Q4-6H PRN for PAIN, #10 TAKE ONE TABLET BY MOUTH EVERY 4-6 HOURS NEEDED FOR PAIN Prov: ANT GENAO DO 03/25/19 Cefuroxime Axetil (CEFUROXIME) 500 Mg Tablet 500 MG PO BID for infection, #14 TAB Prov: ANT GENAO DO 03/25/19 Patient Instructions: Otitis Media (ED) Additional Instructions: Take Mucinex D twice daily Take Flonase or Nasonex nasal spray Take ibuprofen or Aleve for additional inflammatory pain relief Finished taking all of your antibiotic twice daily for one week Follow-up with primary care if unimproved in 3-5 days. Problem Qualifiers Primary Impression: Bilateral otitis media Otitis media type: suppurative Chronicity: acute Recurrence: not specified as recurrent Spontaneous tympanic membrane rupture: without sp ontaneous rupture Qualified Codes: H66.003 - Acute suppurative otitis media without spontaneous rupture of ear drum, bilateral ANT GENAO DO Mar 24, 2019 23:53
[2019-03-25] MEDS ORDERED: ACET/HYDROC 5/325MG TH ER ONLY 2 TAB/BOTTLE PO ONE
[2019-03-25] MEDS ORDERED: LOR5/325 PO
[2019-03-25] MEDS ORDERED: CEFU500T10 PO
[2019-03-25] MEDS ORDERED: CEFUROXIME AXETIL 250 MG TAB PO ONE
== END 2019-03-25 00:03 | disposition home or self-care (01) ==
LOC: ER 23:58
DX: H66.003 Acute suppurative otitis media without spontaneous rupture of ear drum, bilateral (principal); Z87.891 Personal history of nicotine dependence; Z79.899 Other long term (current) drug therapy
CPT/HCPCS: 99283